=== PATIENT | male | born 1980 ===

== ENCOUNTER 2018-08-20 11:44 | Emergency (ER) | payer BC ==
[2018-08-20 11:48] VITALS: BP 155/94; PULSE 81; RESP 18; TEMP 97.8; O2SAT 99; BMI 32.5
--- NOTE | 2018-08-20 12:39 | ED PDOC ---
Upper Extremity Pain/Injury Time Seen by Provider: 08/20/18 12:20 Chief Complaint (Nursing): Upper Extremity Problem/Injury Chief Complaint (Provider): Upper Extremity Problem History Per: Patient History/Exam Limitations: no limitations Onset/Duration Of Symptoms: Days (2x) Current Symptoms Are (Timing): Still Present Severity: Moderate Additional Complaint(s): 38 year old male with no pertinent past medical history presents to the ED for an evaluation of atraumatic left shoulder pain that has been ongoing for 2x days. Patient denies having any falls. Patient reports that he has been on vacation and is unsure of why the pain started. Patient denies taking [id number] for pain medications. PMD: None provided Past Medical History Reviewed: Historical Data, Nursing Documentation, Vital Signs Vital Signs: Last Vital Signs Temp 97.8 F 08/20/18 11:47 Pulse 81 08/20/18 11:47 Resp 18 08/20/18 11:47 BP 155/94 H 08/20/18 11:47 Pulse Ox 99 08/20/18 11:47 NANCI Report Viewed: Yes - Medical History PMH: No Chronic Diseases - Family History Family History: States: No Known Family Hx - Social History Current smoker - smoking cessation education provided: No Alcohol: Occasional Drugs: Denies - Home Medications Home Medications: Ambulatory Orders Medication Instructions Recorded Naproxen 375 mg PO Q8 PRN #21 tablet 08/20/18 - Allergies Allergies/Adverse Reactions: Allergies Allergy/AdvReac Type Severity Reaction Status Date / Time No Known Allergies Allergy Verified 08/20/18 12:18 Review of Systems ROS Statement: Except As Marked, All Systems Reviewed And Found Negative Musculoskeletal: Positive for: Shoulder Pain (left) Physical Exam - Reviewed Nursing Documentation Reviewed: Yes Vital Signs Reviewed: Yes - Physical Exam Appears: Positive for: Well, Non-toxic, No Acute Distress Head Exam: Positive for: ATRAUMATIC, NORMOCEPHALIC Skin: Positive for: Normal Color, Warm, Dry Extremity: Positive for: Normal ROM (limited ROM of left shoulder due to pain), Tenderness (tenderness by insertion of bicep tendon (left).). Negative for: Other (bony tenderness) Neurologic/Psych: Positive for: Alert, Oriented (3x) - ECG O2 Sat by Pulse Oximetry: 99 (RA) Pulse Ox Interpretation: Normal - Progress ED Course And Treament: SHOULDER XRY: NO FX NAPROXEN 500MG X 1 DOSE Medical Decision Making Medical Decision Makin:20 Initial impression: 38 year old male with left shoulder pain. Initial plan: * XRay shoulder left * naproxen 500 mg PO * reevaluation Scribe Attestation: Documented by Urvashi Alcantar, acting as a scribe for Megan Cueva PA-C. Provider Scribe Attestation: All medical record entries made by the Scribe were at my direction and personally dictated by me. I have reviewed the chart and agree that the record accurately reflects my personal performance of the history, physical exam, medical decision making, and the department course for this patient. I have also personally directed, reviewed, and agree with the discharge instructions and disposition. Disposition - Clinical Impression Clinical Impression: Biceps tendinitis of left shoulder - Patient ED Disposition Is Patient to be Admitted: No - Disposition Disposition: Routine/Home Disposition Time: 13:05 Condition: FAIR Prescriptions: Naproxen 375 mg PO Q8 PRN #21 tablet PRN Reason: Pain, Moderate (4-7) Instructions: Biceps Tendinopathy
[2018-08-20] MEDS ORDERED: Naproxen 500 MG TAB PO ONE (12:44)
[2018-08-20] MEDS: Naproxen 500 MG TAB PO STA (12:50)
--- NOTE | 2018-08-20 13:49 | RAD ---
Date of service: 08/20/2018 PROCEDURE: Radiographs of the Left Shoulder HISTORY: shoulder pain COMPARISON: No prior. FINDINGS: BONES: Normal. No fracture. JOINTS: Normal. Glenohumeral and acromioclavicular joints preserved. No osteoarthritis. SOFT TISSUES: Normal. OTHER FINDINGS: None. IMPRESSION: Normal radiographs of the left shoulder.
== END 2018-08-20 13:42 | disposition home or self-care (01) ==
LOC: H.ER 11:44
DX: M75.22 Bicipital tendinitis, left shoulder (principal)